=== PATIENT | male | born 1980 | race Caucasian/White ===

== ENCOUNTER 2021-03-26 22:24 | Emergency (ER) | payer OTHER ==
[~2021-03-26] VITALS: Ht 180.3 cm; Wt 92.0 kg
[2021-03-26 22:30] VITALS: BP 118/72
--- NOTE | 2021-03-26 22:38 | ED Integumentary General ---
General Chief Complaint: Laceration Stated Complaint: LT HAND LAC History of Present Illness Date Seen by Provider: Mar 26, 2021 Time Seen by Provider: 22:31 Initial Comments 40-year-old male presents with laceration to the palmar aspect of his left ring finger. Patient accidentally got caught in printing press. Patient with very small abrasion/superficial laceration at the base of the ring finger. He is unsure when his last tetanus was. Patient reports the majority of his fingers of the left hand also got caught. He has full range of motion. No other systemic complaints Allergies and Home Medications Allergies Coded Allergies: No Known Drug Allergies (Unverified , 03/26/21) Patient Home Medication List Home Medication List Reviewed: Yes Review of Systems Review of Systems Constitutional: no symptoms reported EENTM: see HPI Respiratory: no symptoms reported Cardiovascular: no symptoms reported Gastrointestinal: no symptoms reported Genitourinary: no symptoms reported Musculoskeletal: see HPI Skin: see HPI Psychiatric/Neurological: No Symptoms Reported Endocrine: No Symptoms Reported Past [id number]-Ujaewv-Eabqhz Hx Past Med/Social Hx: Reviewed Nursing Past Med/Soc Hx Physical Exam Vital Signs Vital Signs - First Documented 03/26/21 22:30 Temp 36.0 Pulse 67 Resp 14 B/P (MAP) 118/72 (87) O2 Delivery Room Air Capillary Refill : General Appearance: no apparent distress HEENT: PERRL/EOMI, normal ENT inspection Neck: full range of motion, supple Cardiovascular: normal peripheral pulses, regular rate, rhythm Respiratory: chest non-tender, lungs clear Extremities: normal range of motion, swelling Skin Problem Location: other (Left ring finger) Skin Problem Character: other (Abrasions, small superficial laceration, nonsuturable) Progress/Results/Core Measures Results/Orders My Orders Orders - LARKIN,HUI L DO Hand 3 View Left (03/26/21 22:30) Dipht,Pertuss(Acell),Tet Adult (Boostrix (03/26/21 22:45) Vital Signs/I&O 03/26/21 22:30 Temp 36.0 Pulse 67 Resp 14 B/P (MAP) 118/72 (87) O2 Delivery Room Air Diagnostic Imaging Diagonstic Imaging: Xray Plain Films/CT/US/NM/MRI: other (Left hand) Comments No fracture noted Departure Impression Primary Impression: Crushing injury of left hand and finger Qualified Codes: S67.22XA - Crushing injury of left hand, initial encounter Additional Impression: Abrasion of left ring finger, initial encounter Disposition: HOME, SELF-CARE Condition: Stable Departure-Patient Inst. Referrals: FATIMAH WARREN MD (PCP/Family) Primary Care Physician Patient Instructions: Skin Abrasions (DC), Crush Injury Add. Discharge Instructions: Ice to affected area Tylenol and ibuprofen as needed for pain All discharge instructions reviewed with patient and/or family. Voiced understanding. HUI LARKIN DO Mar 26, 2021 22:38
[2021-03-26] MEDS ORDERED: TETANUS,DIPTH,PERTUSS P/F (BOOSTRIX) 0.5 ML VIAL IM ONE (22:45)
--- NOTE | 2021-03-27 08:14 | Diagnostic Imaging Report ---
INDICATION: trauma, caught in a press at work TECHNIQUE: Three views of the left hand. CORRELATION STUDY: None FINDINGS: There is normal alignment and appearance of the osseous structures of the hand. The joint spaces are maintained. There is no acute fracture. Soft tissues are unremarkable. IMPRESSION: 1. Negative for acute bony abnormality of the hand. Dictated by: Dictated on workstation # [id number]
== END 2021-03-26 23:03 | disposition home or self-care (01) ==
LOC: ER FS 22:28
DX: S67.195A Crushing injury of left ring finger, initial encounter (principal); S67.22XA Crushing injury of left hand, initial encounter; S60.415A Abrasion of left ring finger, initial encounter; Z23 Encounter for immunization; W31.89XA Contact with other specified machinery, initial encounter
CPT/HCPCS: 73130; 90715